=== PATIENT | female | born 1965 | race Caucasian/White ===

== ENCOUNTER 2017-04-25 08:45 | Emergency (ER) | payer OTHER ==
[~2017-04-25] VITALS: Ht 165.1 cm; Wt 86.0 kg
[~2017-04-25 08:45] MED LIST: BENADRYL ALLERG25 MG PO; BENADRYL25 MG PO; BIOTIN1000 MICRO PO; CELEBREX200 MG PO; DAILY VALUE1 EACH PO; HYDROCODON-ACE1 EAC7 PO; PANTOPRAZOLE SO40 MG PO; PRENATAL PLUS1 EAC5 PO; PROTONIX40 MG PO; SUCRALFATE1 GM/10 ML PO; VITAMIN B-122500 MCG SL; VITAMIN B122500 MCG PO
[2017-04-25] MEDS ORDERED: PERCOCET 5/31 TABLET PO (11:19)
[2017-04-25 11:48] VITALS: BP 128/81
== END 2017-04-25 11:49 | disposition home or self-care (01) ==
LOC: EME 08:45
DX: S83.91XA Sprain of unspecified site of right knee, initial encounter (principal); X50.9XXA Other and unspecified overexertion or strenuous movements or postures, initial encounter; Y93.02 Activity, running; Z98.84 Bariatric surgery status
CPT/HCPCS: 73564; 99281; 99284